=== PATIENT | male | born 1985 | race Caucasian/White ===

== ENCOUNTER 2016-10-09 17:40 | Emergency (ER) | payer BC ==
--- NOTE | 2016-10-11 19:25 | ER ---
ADMIT: 10/09/2016 RM/LOC: ER [facility] MR#: [id number] [id number] [place] [address] Emergency Room Report SEX: M AGE: 31 : 1985 DATE: 10/09/2016 TIME: 1740. Please refer to my T-sheet for complete H and P. HISTORY OF PRESENT ILLNESS: Briefly, the patient is a 31-year-old who comes in with chest discomfort. He has been having this for 6 weeks. He has been treated different ways on and off. He has been evaluated. He rates it at 5/10. It seems to maybe be worse sometimes. When he is laying flat, it hurts to breathe. He does not smoke. Does not have any risk factors. He has actually been a runner in the past. He denies any drug abuse and does not drink alcohol and drinks some caffeine. PHYSICAL EXAMINATION: VITAL SIGNS: Blood pressure 139/108, pulse 83, respirations 20, temp 98, saturating 100%. GENERAL: He is in no acute distress. Very well appearing. HEENT: Atraumatic, normocephalic. Pupils are equal, round, react to light. Extraocular muscles intact. TMs clear. Throat clear. NECK: Soft, supple. LUNGS: Clear to auscultation, no crackles or wheeze. HEART: Regular, no murmur. ABDOMEN: Soft, nontender. SKIN: No rash. EMERGENCY DEPARTMENT COURSE: I gave him a GI cocktail, Zofran 4 p.o. Chest x- ray showed no acute findings. EKG was sinus rhythm, rate 71, no changes. I had a long discussion with him, he is ready for discharge. ASSESSMENT: 1. Atypical chest pain. 2. Gastroesophageal reflux disease. PLAN: I am going to put him on Protonix 40 a day, gave him 20; Carafate 1 g t.i.d. x10 days; [id number]-[id number] Claritin. Return if worse, and I want him to follow up with Dr. Harris next week to recheck and no late night meals. Gee Palomino MD/ amy JOB #: [id number] CC: Gee Palomino MD, Attending Physician Diego Harris MD, Family Physician Diego Harris MD
== END 2016-10-09 18:45 | disposition home or self-care (01) ==
LOC: ER 17:40
DX: R07.89 Other chest pain (principal); K21.9 Gastro-esophageal reflux disease without esophagitis; Z88.5 Allergy status to narcotic agent; Z79.899 Other long term (current) drug therapy